=== PATIENT | male | born 1955 | race Caucasian/White ===

== ENCOUNTER 2017-01-24 06:00 | Day surgery (SDC) | payer BC ==
[~2017-01-24] VITALS: Ht 180.3 cm; Wt 77.1 kg
[2017-01-24] MEDS ORDERED: SIMETHICONE 40 MG/0.6 ML ML ONE (06:16)
[2017-01-24] MEDS ORDERED: MIDAZOLAM HCL 5 MG/5 ML VIAL ONE (06:19)
[2017-01-24] MEDS ORDERED: fentaNYL CITRATE/PF 100 MCG/2 ML AMP ONE ×2 (06:19→07:01)
[2017-01-24 07:36] VITALS: BP_SYST 122
== END 2017-01-24 08:30 | disposition home or self-care (01) ==
LOC: SDS 06:00
PROVIDERS: ATTEND Colon & Rectal Surgery
DX: Z12.11 Encounter for screening for malignant neoplasm of colon (principal); K57.30 Diverticulosis of large intestine without perforation or abscess without bleeding; K64.4 Residual hemorrhoidal skin tags; K63.89 Other specified diseases of intestine; K64.8 Other hemorrhoids; Z98.890 Other specified postprocedural states
CPT/HCPCS: 45378; J2250; J3010; J7030